=== PATIENT | female | born 1945 | race Caucasian/White ===

== ENCOUNTER → 2022-07-09 | Outpatient (CLI) | payer OTHER ==
[~2022-07-09] VITALS: Ht 165 cm; Wt 72.0 kg
[~2022-07-09] MED LIST: ACHD5005 PO; APIX5TAB PO; ATOR80TA76 PO; FEXO1TAB43 PO; ISOS30TA82 PO; METO-333 PO; TRAM50TA3 PO
== END | disposition home or self-care (01) ==
LOC: PREOP 05:36
PROVIDERS: ATTEND Surgery
DX: Z01.818 Encounter for other preprocedural examination (principal)

== ENCOUNTER 2022-07-11 06:23 | Day surgery (SDC) | payer MEDICARE, OTHER ==
[2022-07-11] VITALS (10 sets, daily range): BP systolic 125–179; BP diastolic 71–101
[~2022-07-11 06:23] MED LIST changes: -ACHD5005 PO
[2022-07-11] MEDS ORDERED: BUP/EPI 0.5% 1:200,000 (MARCAINE) 10ML VIAL IJ ONE ×2 (07:27→09:24)
[2022-07-11] MEDS ORDERED: LACTATED RINGERS 1,000 ML IV PRN (07:45)
[2022-07-11] MEDS ORDERED: ceFAZolin INJECTION 2,000 MG in NS (IVPB) 50 ML IV ONE (07:45)
[2022-07-11] MEDS ORDERED: proPOfol 200 MG/20 ML (DIPRIVAN) VIAL IV ONE (08:14)
[2022-07-11] MEDS ORDERED: ROCURONIUM 10 MG/ML 5 ML SYRINGE IV ONE (08:14)
[2022-07-11] MEDS ORDERED: ONDANSETRON 4 MG/2 ML (SDV) Z0FRAN ONE ×2 (08:14→10:20)
[2022-07-11] MEDS ORDERED: GLYCOPYRROLATE 0.2 MG/ML (ROBINUL) 2 ML VIAL ONE (08:14)
[2022-07-11] MEDS ORDERED: LIDOCAINE PF 2% 5 ML (XYLOCAINE) VIAL ONE (08:14)
[2022-07-11] MEDS ORDERED: fentaNYL INJ 100 MCG/2 ML AMP ONE (08:15)
[2022-07-11] MEDS ORDERED: NEOSTIGMINE (BLOXIVERZ ) 1 MG/1ML 10 ML VIAL ONE (08:15)
--- NOTE | 2022-07-11 09:01 | Progress Note-Pre Operative ---
Pre-Operative Progress Note Date of Available H&P: Jul 08, 2022 Date H&P Reviewed: Jul 11, 2022 Time H&P Reviewed: 08:51 History & Physical: H&P Reviewed, Patient Examed, No changes noted Pre-Operative Diagnosis: Cholecystitis/Cholelithiasis SANTINO MALIN DO Jul 11, 2022 09:01
[2022-07-11] MEDS ORDERED: PHENYLEPHRINE 100 MCG/ML 10 ML (ANESTHESIA) SYR ONE (09:09)
[2022-07-11] MEDS ORDERED: ESMOLOL 100 MG/10 ML (BREVIBLOC) VIAL ONE (09:10)
[2022-07-11] MEDS ORDERED: IOHEXOL 300 MG/ML 30 ML (OMNIPAQUE 300) VIAL INJ ONE (09:30)
[2022-07-11] MEDS ORDERED: SEVOFLURANE (ULTANE) 15 ML INHAL SOLN ONE (09:58)
[2022-07-11] MEDS ORDERED: ACHD5005 PO (10:03)
--- NOTE | 2022-07-11 10:05 | Discharge Inst-Surgical ---
Discharge Inst-Surgical Depart Medication/Instructions New, Converted or Re-Newed RX: Transmitted to Pharmacy Patient Instructions Follow up Appt: Make appointment for 1 week. [phone] Instructions: No lifting greater than 20 pounds. No strenuous activity. May shower in 24 hours, no tub bath or soaking. Use incentive spirometer at home as directed. No Smoking Skin/Wound Care: May remove bandages in am. You need to leave the Dermabond on incision it will fall off on it's own. Symptoms to Report: Appetite Changes, Extremity Discoloration, Numbness/Tingling, Swelling Increased, Bleeding Excessive, Eyesight Changes, Pain Increased, Urine Color Change, Constipation(Persistent), Fever over 101 degree F, Pain/Pressure in chest, Urinating Difficulty, Cough Up/Vomit Blood, Heart Beat Irreg/Pounding, Pain/Pressure in jaw, Cramps in feet or legs, Lightheadedness, Pain/Pressure in shoulder, Diarrhea(Persistent), Memory Changes Suddenly, Questions/Concerns, Weight gain consecutive days, Dizziness/Fainting, Nausea/Vomiting, Shortness of Breath, Weight gain over 2 pounds If questions or concerns contact your physician Or seek help at emergency department. Activity Activity as Tolerated: Yes Activity Instructions: Avoid Stress to Incision Driving Instructions: No Driving/Refer to Dr. Urias Discharge Diet: Avoid Fatty Foods, Low Fat/Low Cholesterol Symptoms to Report to Physicia: Pain/Pressure in Chest, Lightheadedness, Dizziness/Fainting, Shortness of Breath If Any Problems/Questions/Issu: Contact Your Physician, Go to Emergency Room Skin/Wound Care Infection Signs and Symptoms: Increased Redness, Foul Odor of Wound, Increased Drainage, Skin Itchy or Has a Rash, Increased Swelling, Temperature Above 101 F Wound Care Comment: heating pad to shoulder or neck tonight for pain Bathing Instructions: Shower Stitches/Ama/Dermabond Dis: Dermabond Ice Pack: Ice On and Off Site SANTINO MALIN DO Jul 11, 2022 10:05
[2022-07-11] MEDS: ONDANSETRON 4 MG/2 ML (SDV) Z0FRAN IVP PRN ×2 (10:21→10:39)
[2022-07-11] MEDS ORDERED: morphine INJ 10 MG/ML 1ML (SYR OR VIAL) IVP ONE (10:30)
[2022-07-11] MEDS ORDERED: HYDROmorphone 2 MG/ML VIAL (DILAUDID) IV ONE (10:30)
--- NOTE | 2022-07-11 11:15 | Progress Note-Post Operative ---
Post-Operative Progess Note Surgeon (s)/Utility Inspector (s) Surgeon SANTINO MALIN DO Utility Inspector: FERNANDA Claudio Pre-Operative Diagnosis Cholecystitis/Cholelithiasis Post-Operative Diagnosis same plus adhesions Procedure & Operative Findings Date of Procedure 07/11/22 Procedure Performed/Findings PROCEDURE: Laparoscopic cholecystectomy with intraoperative cholangiogram. COMPLICATIONS: None. INDICATIONS: Pt has been having RUQ pain for a month, thought it was kidney stones but then had an US which showed cholelithiasis. Pt was taking Eliquis and stopped it on Thursday. I had long discussion with her before surgery about increased risk of bleeding because of anticoagulation and increased risk of cardiac events. She said she understood and "get that little bugger out of there". I told her that we may keep her if there was concern for bleeding. PROCEDURE: The patient was taken to the operating suite and was prepped and draped in sterile fashion. A surgical pause was performed. Just superior to the umbilicus, a 12 mm incision was made. Dissection was taken down to the fascia, which was then scored and grasped with a Betsy and the abdomen was then entered. A 0 Vicryl suture was placed in a dhaisr-ii-himat fashion and a Zacarias trocar was placed and secured. Pneumoperitoneum was achieved. A 5mm tro[address] in the subxyphoid and two in the right upper quadrant. The gallbladder was then grasped at the fundus and taken in the superior direction. Next grasped at Perez's pouch and pulled in the infero-lateral direction. The gallbladder wall did not seemed thickened but there were some minimal adhesions. Next started to dissect out the cystic duct and cystic artery. Clip was placed on the distal portion of the cystic duct which was then partially transected; immediately got out some small black stones that were in the duct; picture taken. An arrow catheter was inserted into the duct. The cholangiogram was then performed. No filing defects and contrast made its way into the duodenum. Catheter removed. Clips were placed on proximal portion of the cystic duct and then the duct was then transected. Clips were placed along the proximal and distal portion of the cystic artery which was then transected. Hook cautery was used to dissect the gallbladder from the gallbladder fossa achieving hemostasis. Made sure to take pressure down to 8 and stopped all bleeding on the bed of liver. Adhesions were seen and picture taken of them. The gallbladder was placed in an Endobag and removed through the 12 mm trocar site. The abdomen was then reinspected. Copious amounts of irrigation were used to irrigate the abdomen and there were no signs of active bleeding. Hemostasis had been achieved. The 12 mm fascial defect was then closed with 0 Vicryl suture that had been placed in a [id number] fashion. The abdomen was then desufflated, the trocars were removed. The abdomen was then washed and dried. The skin was then closed using 4-0 Monocryl in a subcuticular fashion. The abdomen was washed and dried and Skin Affix was place over incisions. Patient tolerated the procedure well without any complications and was taken to the recovery room in stable condition. Sponge, instrument and needle count were correct at end of case. Anesthesia Type GET Estimated Blood Loss Estimated blood loss (mL): scant Specimens/Packing Specimens Removed GB and contents SANTINO MALIN DO Jul 11, 2022 11:15
[2022-07-11] MEDS ORDERED: HYDROcodone/APAP 5 MG/325 MG (LORTAB) TAB PO ONE (12:00)
[2022-07-11] MEDS ORDERED: HYDROcodone/APAP 5 MG/325 MG (LORTAB) TAB ONE (12:10)
--- NOTE | 2022-07-11 12:33 | Diagnostic Imaging Report ---
INDICATION: Cholangiogram. COMPARISON: None. TOTAL FLUOROSCOPY TIME: 9 seconds. TOTAL NUMBER OF FLUOROSCOPIC IMAGES SAVED: 45. FINDINGS: Multiple intraoperative image intensifier and digital subtraction images of the right upper abdominal quadrant were obtained during intraoperative cholangiogram. Images provided show contrast filling the intra- and extra-hepatic biliary ductal systems. No large intraluminal filling defect is seen. There is no extrinsic compression. Contrast empties into the small bowel, as expected. Please note, interpreting radiologist was not present during the procedure. IMPRESSION: 1. Fluoroscopic guidance as above. Dictated by: Dictated on workstation # [id number]
--- NOTE | 2022-07-15 08:35 | Anesthesia-General Post-Op ---
General Patient Condition Mental Status/LOC: Same as Preop Cardiovascular: Satisfactory Nausea/Vomiting: Absent Respiratory: Satisfactory Pain: Controlled Complications: Absent Post Op Complications Complications None Follow Up Care/Instructions Patient Instructions None needed. Anesthesia/Patient Condition Patient Condition Patient was seen on 07-11-22 at approximately noon before her discharge to home. I spoke with her and her about her brief episode of A-Fib with RVR after induction. It was short-lived and she returned and stayed in sinus rhythm for the remainder of the case and PACU stay. She was doing well, no complaints, stable vital signs, no apparent adverse anesthesia problems. 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 They understood and agreed. No complications reported per nursing. ISAIAH HATCH DO Jul 15, 2022 08:35
== END 2022-07-11 12:40 | disposition home or self-care (01) ==
LOC: SDC 06:23
PROVIDERS: ATTEND Surgery
DX: K80.10 Calculus of gallbladder with chronic cholecystitis without obstruction (principal); Z79.01 Long term (current) use of anticoagulants; F17.210 Nicotine dependence, cigarettes, uncomplicated; Z95.0 Presence of cardiac pacemaker
CPT/HCPCS: 76000; 87081

== ENCOUNTER → 2022-10-09 | Outpatient (CLI) | payer MEDICARE ==
[~2022-10-09] MED LIST changes: +ACHD5005 PO
--- NOTE | 2022-10-09 14:12 | Diagnostic Imaging Report ---
SHOULDER 3 VIEW LEFT INDICATION: Left shoulder pain COMPARISON: None available. TECHNIQUE: 4 views of left shoulder FINDINGS: Glenohumeral alignment is normal. No glenoid retroversion. 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 Subacromial space is preserved. No abnormal soft tissue mineralizations. No fracture or concerning focal osseous lesion. Partially imaged left pectoral transvenous pacemaker. IMPRESSION: Mild degenerative arthritis AC joint. Dictated by: Dictated on workstation # [id number]
== END ==
LOC: RAD FS 09:55
PROVIDERS: ATTEND Nurse Practitioner
DX: M19.09 Primary osteoarthritis, other specified site (principal); M75.122 Complete rotator cuff tear or rupture of left shoulder, not specified as traumatic
CPT/HCPCS: 73030

== ENCOUNTER → 2022-10-20 | Outpatient (CLI) | payer MEDICARE ==
[~2022-10-20] VITALS: Ht 165.1 cm; Wt 81.8 kg
[~2022-10-20] MED LIST changes: +IOHEXOL 300 MG/ML 50 ML (OMNIPAQUE 300) VIAL IV ONE
--- NOTE | 2022-10-20 16:07 | Diagnostic Imaging Report ---
PROCEDURE: CT left upper extremity with contrast. TECHNIQUE: Axial images were obtained through the left upper extremity after intravenous contrast and reformatted into coronal and sagittal oblique planes. Auto Exposure Controls were utilized during the CT exam to meet ALARA standards for radiation dose reduction. INDICATION: Rotator cuff tear. COMPARISON: Left shoulder radiographs of 10/09/2022. FINDINGS: Rotator cuff: There is a full-thickness and complete tear of the supraspinatus with the stump retracted to the level of the mid humeral head. Low-grade partial-thickness interstitial tear propagates into the anterior aspect of the infraspinatus. Teres minor is intact. No full-thickness tear in the subscapularis. Long head of biceps: The origin of the long head of biceps is intact and extracapsular segment appears normal in position. Glenoid labrum: No chondrolabral separation or intrasubstance tear of the labrum. Bones: No fracture or concerning osseous lesion. No glenoid retroversion. Glenoid bone stock is normal. Soft tissues: No proliferative synovitis or loose bodies in the glenohumeral joint. Visualized aspects of the left lung show no concerning abnormality. Implanted generator pack from patient's pacemaker is noted in the left upper chest wall. IMPRESSION: 1. Complete tear of the supraspinatus has its proximal stump retracted to the mid humeral head. No associated muscle belly atrophy. 2. Low-grade partial-thickness interstitial tear in the anterior aspect of the infraspinatus. 3. Long head of biceps remains intact. Dictated by: Dictated on workstation # [id number]
--- NOTE | 2022-10-21 14:41 | Diagnostic Imaging Report ---
Indication: Left shoulder pain. Patient brought to the procedure room and placed on table in supine position. Left shoulder was prepped and draped in usual sterile fashion. Small amount 1% lidocaine was utilized for local anesthesia. 22-gauge needle was advanced into left shoulder rotator interval. A 15 mm solution of iodinated contrast and normal saline was injected under fluoroscopic observation. 15 seconds of fluoroscopic time was utilized. Needle was removed and hemostasis was obtained. Patient tolerated the procedure well and was sent to CT for CT arthrography in satisfactory condition. IMPRESSION: Successful left shoulder injection of iodinated contrast solution, using fluoroscopy. Dictated by: Dictated on workstation # [id number]
== END ==
LOC: RAD 10:36
PROVIDERS: ATTEND Nurse Practitioner
DX: M75.122 Complete rotator cuff tear or rupture of left shoulder, not specified as traumatic (principal)
CPT/HCPCS: 23350; 73040; 73201

== ENCOUNTER → 2022-11-18 | Outpatient (CLI) | payer MEDICARE ==
[~2022-11-18] MED LIST changes: -IOHEXOL 300 MG/ML 50 ML (OMNIPAQUE 300) VIAL IV ONE
== END ==
LOC: CARDFS 11:25
PROVIDERS: ATTEND Family Medicine
DX: I08.3 Combined rheumatic disorders of mitral, aortic and tricuspid valves (principal); I50.22 Chronic systolic (congestive) heart failure
CPT/HCPCS: 93306